=== PATIENT | male | born 1995 ===

== ENCOUNTER 2020-01-28 11:52 | Emergency (ER) | payer SELFPAY ==
[~2020-01-28] VITALS: Ht 185.4 cm; Wt 106.8 kg
[2020-01-28 12:02] VITALS: BP 110/72; TEMP 98.2
[2020-01-28 12:51] VITALS: PULSE 84
== END 2020-01-28 12:51 | disposition home or self-care (01) ==
LOC: COL.ER 11:52
DX: Z20.828 Contact with and (suspected) exposure to other viral communicable diseases (principal); F17.290 Nicotine dependence, other tobacco product, uncomplicated